=== PATIENT | male | born 1995 | race Caucasian/White ===

== ENCOUNTER 2020-11-20 00:46 | Emergency (ER) | payer OTHER ==
[2020-11-20 01:11] LABS: MARIJUANA (THC) POSITIVE (NEGATIVE)
[2020-11-20 01:12] LABS: AMPHETAMINES NEGATIVE (NEGATIVE); BARBITURATES NEGATIVE (NEGATIVE); ECSTASY (MDMA) NEGATIVE (NEGATIVE); METHADONE NEGATIVE (NEGATIVE); OPIATES NEGATIVE (NEGATIVE); OXYCODONE NEGATIVE (NEGATIVE)
[2020-11-20 01:28] LABS: BASOPHIL 0.6 % (0-2); EOSINOPHIL 2.7 % (0-5); HGB 15.4 g/dl (13.2-18.0); LYMPHOCYTE 25.1 % (15-48); MCH 30.6 pg (25.0-31.0); MCHC 33.5 g/dL (32.0-36.0); MCV 91.5 fL (78.0-100.0); MONOCYTE 6.3 % (0-12); MPV 9.3 fL (6.0-9.5); NRBC 0; PLT 242 K/uL (150-400); RBC 5.03 M/uL (4.70-6.00); RDW 12.2 % (11.5-14.0); WBC 8.6 K/uL (4.0-10.5)
[2020-11-20 01:31] LABS: BILIRUBIN NEGATIVE (NEGATIVE); BLOOD TRACE-INTACT Ery/uL (NEGATIVE); CLARITY CLEAR (CLEAR); COLOR YELLOW (YELLOW); GLUCOSE (U) NORMAL (NORMAL); LEUKOCYTES NEGATIVE Leu/uL (NEGATIVE); NITRITE NEGATIVE (NEGATIVE); PROTEIN NEGATIVE (NEGATIVE); UROBILINOGEN 0.2 mg/dL (0.2-1.0); pH 6.5 (5.0-9.0)
[2020-11-20 01:41] LABS: TOTAL CELL COUNT 100
[2020-11-20 01:41] LABS: URINARY RBC RARE
[2020-11-20 01:43] LABS: LYMPHOCYTE(M) 24 % (15-48); NEUTROPHILS(M) 72 % (41-80)
[2020-11-20 01:44] LABS: BASOPHIL(M) 0 % (0-2); EOSINOPHIL(M) 0 % (0-5); MONOCYTE(M) 4 % (0-12); PLATELET ESTIMATE NORMAL; PLATELET MORPHOLOGY NORMAL; VARIANT LYMPHOCYTE 0
[2020-11-20 01:45] LABS: ALBUMIN 4.2 g/dL (3.4-5.0); BILIRUBIN - TOTAL 0.2 mg/dL (0.2-1.0); BUN/CREAT RATIO (CALC) 5.5 RATIO; CREATININE 0.91 mg/dL (0.67-1.17); GLOBULIN (CALCULATION) 3.1 g/dL; POTASSIUM 3.4 mmol/L (3.5-5.1); TOTAL PROTEIN 7.3 g/dL (6.4-8.2)
== END 2020-11-20 02:54 | disposition home or self-care (01) ==
LOC: FER 00:46
PROVIDERS: Emergency Medicine
DX: F13.10 Sedative, hypnotic or anxiolytic abuse, uncomplicated (principal); F12.10 Cannabis abuse, uncomplicated; K02.9 Dental caries, unspecified; Z90.01 Acquired absence of eye; Z86.73 Personal history of transient ischemic attack (TIA), and cerebral infarction without residual deficits; X58.XXXA Exposure to other specified factors, initial encounter
CPT/HCPCS: 36415; 80053; 80305; 81001; 99282; G0480